=== PATIENT | female | born 1945 | race Caucasian/White ===

== ENCOUNTER → 2024-12-12 | Outpatient (CLI) | payer OTHER ==
--- NOTE | 2024-12-12 16:39 | RADIOLOGY REPORT ---
PROCEDURE: MR MRI LUMBAR SPINE INDICATION: SPONDYLOSIS W/O MYELOPATHY OR RADICULOPATHY, LUMBAR REGION Exam Date: 12/12/2024 09:36 AM COMPARISON: None TECHNIQUE: MRI lumbar spine without intravenous contrast. FINDINGS: Dextroscoliosis. Grade 1 retrolisthesis of L1 on L2 and L2 on L3. Grade 1 anterolisthesis of L4 on L5 and L5 on S1. Chronic compression deformity of T11, L1, L3, L4, and L5. No acute compression fractur e. There are degenerative endplate changes including modic endplate changes with anterior and later al osteophytes throughout the lumbar spine. The visualized distal spinal cord and conus medullaris ar e within normal limits. The conus medullaris appears to terminate within normal limits. The visuali zed retroperitoneal and paraspinal soft tissues are unremarkable. The following axial levels are detailed below: T12-L1: There is a mild circumferential disc bulge. No significant central canal or neuroforaminal s tenosis. L1-L2: There is a moderate circumferential disc bulge complicated by facet arthropathy associated w ith mild to moderate left neuroforaminal stenosis. No significant central canal stenosis. L2-L3: There is a moderate circumferential disc bulge complicated by facet arthropathy associated w ith moderate to severe left neuroforaminal stenosis. Central canal measures 8 mm. L3-L4: There is a severe circumferential disc bulge complicated by facet arthropathy narrowing the central canal to 6 mm with associated moderate to severe bilateral neuroforaminal stenosis. L4-L5: There is a severe circumferential disc bulge complicated by facet arthropathy narrowing the central canal to 7 mm with associated moderate bilateral neuroforaminal stenosis. L5-S1: There is a moderate circumferential disc bulge complicated by facet arthropathy associated wi th mild to moderate bilateral neuroforaminal stenosis. No significant central canal stenosis. IMPRESSION: 1. Multiple chronic compression fractures in the visualized thoracolumbar spine. 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 Grade 1 retrolisthesis of L1 on L2 and L2 on L3. Grade 1 a nterolisthesis of L4 on L5 and L5 on S1. Severe central canal stenosis L3-4 and L4-5. Moderate centr al canal stenosis L2-3. Neural foraminal stenosis as above. HS:Y
== END | disposition home or self-care (01) ==
LOC: MRI02 09:28
PROVIDERS: ATTEND Anesthesiology
DX: S22.080A Wedge compression fracture of T11-T12 vertebra, initial encounter for closed fracture (principal); M51.17 Intervertebral disc disorders with radiculopathy, lumbosacral region; M47.27 Other spondylosis with radiculopathy, lumbosacral region; M48.07 Spinal stenosis, lumbosacral region; X58.XXXA Exposure to other specified factors, initial encounter; Y93.89 Activity, other specified; Y92.89 Other specified places as the place of occurrence of the external cause; Y99.8 Other external cause status; S32.010A Wedge compression fracture of first lumbar vertebra, initial encounter for closed fracture; Y93.9 Activity, unspecified
CPT/HCPCS: 72148